=== PATIENT | female | born 1975 | race Hispanic/Latino ===

== ENCOUNTER 2016-10-24 11:59 | Emergency (ER) | payer MEDICARE, MEDICAID ==
[~2016-10-24] VITALS: Ht 167.6 cm; Wt 130.0 kg
[~2016-10-24 11:59] MED LIST: ABILIFY5 MG PO; ACTEMRA80 MG/4 ML IV; ATIVAN; B COMPLE4 PO; CELEXA20 M1 OR; CELEXA20 M1 PO; CETIRIZINE10 MG PO; CHLORPROMAZ50 MG OR; CHLORPROMAZ50 MG PO; CIPRO500 MG OR; CIPROFLOXACN500 MG PO; CITALOPRAM20 MG PO; CLARITIN10 M2 PO; CLONAZEPAM1 MG PO; CYCLOSPORINE25 MG PO; CYMBALTA60 MG PO; DEPO-MEDROL80 MG/ML IM; FOLIC ACID1 MG PO; FOLIC ACID400 MC1 PO; GABAPENTIN300 MG PO; GENGRAF25 MG PO; HUMIR1 SC; HYDROCO/APAP1 T10 PO; HYDROXYCHLOR200 MG PO; LISINOP/HCTZ1 TAB PO; LORTAB 1010 MG PO; LORTAB 7.5 OR; MEDDOSEPAK PO; METRONIDAZOL500 MG PO; NABUMETONE500 MG PO; NAPROSYN500 MG PO; NASONEX50 MCG/AC; NO; NO MEDS; NORCO1 TA1 PO; ONDANSETRON4 MG PO; PRILOSEC20 MG PO; PROAIR HFA IN; PROTONIX40 M2 PO; RASUVO10 MG/0.2; RHEUMATREX2.5 M1 PO; SINGULAIR 10 MG10 MG PO; SOMA350 MG PO; TIZANIDINE HCL4 MG PO; TRAMADOL HCL50 MG PO; TREXALL15 MG PO; TRILEPTAL300 M1 PO; TYLENOL500 MG OR; ULTRAM50 MG PO; VICODIN1 TAB PO; VOSOL2 % OT; WELLBUTRIN; [UNRECOGNIZED DRUG - REMARK]
[2016-10-24] MEDS ORDERED: ZOFRAN ODT4 MG PO (12:57)
[2016-10-24 13:21] VITALS: BP 176/97
== END 2016-10-24 13:27 | disposition home or self-care (01) ==
LOC: ED 11:59
DX: G43.909 Migraine, unspecified, not intractable, without status migrainosus (principal); M43.6 Torticollis; R11.2 Nausea with vomiting, unspecified

== ENCOUNTER 2017-02-06 18:12 | Emergency (ER) | payer MEDICARE, MEDICAID ==
[~2017-02-06] VITALS: Ht 167.6 cm; Wt 90.9 kg
[~2017-02-06 18:12] MED LIST changes: +ZOFRAN ODT4 MG PO
[2017-02-06] MEDS ORDERED: ELAVIL25 M1 PO (18:35)
[2017-02-06] MEDS ORDERED: FOLIC ACID1 MG PO (18:38)
[2017-02-06] MEDS ORDERED: BACLOFEN10 MG PO (18:38)
[2017-02-06] MEDS ORDERED: ATIVAN1 M1 PO (18:40)
[2017-02-06] MEDS ORDERED: RANITIDINE150 M1 PO (18:42)
[2017-02-06] MEDS ORDERED: WELLBUTRIN SR150 MG PO (18:43)
[2017-02-06] MEDS ORDERED: PROAIR HFA IN (18:44)
[2017-02-06] MEDS ORDERED: BREO ELLIPTA 101 INH IN (18:45)
[2017-02-06] MEDS ORDERED: ZOLMITRIPTAN ODT5 MG PO (18:47)
[2017-02-06] MEDS ORDERED: NAPROSYN500 MG PO (19:35)
[2017-02-06 20:00] VITALS: BP 139/88
== END 2017-02-06 20:14 | disposition home or self-care (01) ==
LOC: ED 18:12
DX: S39.012A Strain of muscle, fascia and tendon of lower back, initial encounter (principal); J45.909 Unspecified asthma, uncomplicated; M79.7 Fibromyalgia; F32.9 Major depressive disorder, single episode, unspecified; M06.9 Rheumatoid arthritis, unspecified; K74.60 Unspecified cirrhosis of liver; M54.5 Low back pain; G89.29 Other chronic pain; X58.XXXA Exposure to other specified factors, initial encounter

== ENCOUNTER 2018-03-09 09:33 | Emergency (ER) | payer MEDICARE, MEDICAID ==
[~2018-03-09] VITALS: Ht 167.6 cm; Wt 110.0 kg
[~2018-03-09 09:33] MED LIST changes: +ATIVAN1 M1 PO; +BACLOFEN10 MG PO; +BREO ELLIPTA 101 INH IN; +ELAVIL25 M1 PO; +RANITIDINE150 M1 PO; +WELLBUTRIN SR150 MG PO; +ZOLMITRIPTAN ODT5 MG PO
[2018-03-09] MEDS ORDERED: MOTRIN400 MG PO (10:05)
[2018-03-09 10:22] VITALS: BP 157/78
== END 2018-03-09 10:38 | disposition home or self-care (01) ==
LOC: ED 09:33
DX: G89.18 Other acute postprocedural pain (principal); M79.671 Pain in right foot; Z98.890 Other specified postprocedural states

== ENCOUNTER 2020-11-12 19:13 | Emergency (ER) | payer MEDICARE, MEDICAID ==
[~2020-11-12 19:13] MED LIST changes: +MOTRIN400 MG PO
[2020-11-12 21:17] LABS: HEMATOCRIT 37.6 % (37.0-47.0); HEMOGLOBIN 12.4 g/dl (12.0-16.0); IMMATURE GRANULOCYTES 0.1 % (0.0-5.0); MEAN CELL VOLUME 98.4 fL CALC (80.0-100.0); MEAN CORPUSCULAR HGB 32.5 pG CALC (26.0-32.0); NEUT# 7.72 thou/uL (2.00-7.15); RED BLOOD COUNT 3.82 mill/uL (4.20-5.60); RED CELL DISTRI WIDTH 12.9 % (11.5-15.5)
[2020-11-12 21:35] LABS: ALBUMIN 4.5 g/dL (3.2-5.0); ALKALINE PHOSPHATASE 80 u/l (38-126); AMYLASE 60 u/l (30-110); ANION GAP 17 (6-22 (CALC)); BILIRUBIN, TOTAL 0.4 mg/dL (0.0-1.4); BUN 12 mg/dL (7-17); BUN/CREATININE RATIO 16 (12-20 (CALC)); CARBON DIOXIDE 24 mmol/l (22-30); CHLORIDE 102 mmol/l (95-108); CREATININE 0.7 mg/dL (0.5-1.0); GFR > 60 ML/MIN (>=60 (CALC)); GFR FOR AFR.AMER. > 60 ML/MIN (>=60 (CALC)); LIPASE 51 u/l (23-300); SGOT/AST 31 u/l (14-36); SODIUM 139 mmol/l (137-146); TOTAL PROTEIN 8.3 g/dL (6.3-8.2)
[2020-11-12 21:47] LABS: MYOGLOBIN 26 ng/mL (0 - 62)
[2020-11-12 22:29] LABS: URINE BILIRUBIN - DIPSTICK NEGATIVE (NEGATIVE); URINE BLOOD DIPSTICK LARGE (NEGATIVE); URINE COLOR DK. YELLOW; URINE GLUCOSE - DIPSTICK NEGATIVE (NEGATIVE); URINE KETONE NEGATIVE (NEGATIVE); URINE LEUK ESTERASE NEGATIVE (NEGATIVE); URINE NITRITE - DIPSTICK NEGATIVE (Negative); URINE PH 5.5 (4.5-8.0); URINE PROTEIN - DIPSTICK 30 mg/dL (NEG-TRACE); URINE SPECIFIC GRAVITY >=1.030; URINE UROBILINOGEN - DIPSTICK 0.2 E.U./dL (0.2)
[2020-11-12 22:35] LABS: URINE MUCUS FEW hpf (NONE-FEW); URINE RBC >100 RBC/hpf (0-5); URINE SQUAMOUS EPITHELIAL CELL MODERATE EPI/hpf (0-FEW)
[2020-11-12] MEDS ORDERED: TAMSULOSIN0.4 MG PO (23:46)
[2020-11-13 01:16] VITALS: BP 142/65
[2021-03-20] MEDS ORDERED: FOLIC ACID1 MG PO (09:05)
[2021-03-20] MEDS ORDERED: CYCLOBENZAPRINE10 MG PO (09:05)
[2021-03-20] MEDS ORDERED: RASUVO30 MG/0.6 SC (09:05)
[2021-03-20] MEDS ORDERED: AMITRIPTYLINE H10 MG PO (09:06)
[2021-03-20] MEDS ORDERED: COZAAR25 MG PO (09:06)
[2021-03-20] MEDS ORDERED: ATIVAN0.5 MG PO (09:06)
[2021-03-20] MEDS ORDERED: BUPROPION HCL150 MG PO (09:06)
[2021-03-20] MEDS ORDERED: ONDANSETRON4 MG PO (09:09)
[2021-03-20] MEDS ORDERED: RITUXIMAB (09:09)
[2021-03-20] MEDS ORDERED: ALBUTEROL0.63 MG/3 (09:09)
[2021-03-25] MEDS ORDERED: TIZANIDINE HCL4 M1 PO (11:07)
[2021-03-25] MEDS ORDERED: AMOX/K CLAV875 M1 PO (11:08)
[2021-03-25] MEDS ORDERED: D2000 ULTRA2000 UNIT PO (11:08)
[2021-03-25] MEDS ORDERED: DILAUDID2 MG PO (11:09)
[2021-03-25] MEDS ORDERED: MILLIPRED5 M1 PO (11:09)
[2021-03-25] MEDS ORDERED: VENTOLIN HFA IN (11:10)
[2021-03-25] MEDS ORDERED: MAXALT-MLT10 MG PO (11:10)
[2021-03-25] MEDS ORDERED: BREO ELLIPTA 101 INH IN (11:11)
[2021-03-25] MEDS ORDERED: LYRICA100 MG PO (11:12)
== END 2020-11-13 01:20 | disposition home or self-care (01) ==
LOC: ED 19:13
PROVIDERS: Emergency Medicine
DX: N20.0 Calculus of kidney (principal); M06.9 Rheumatoid arthritis, unspecified; M79.7 Fibromyalgia; F17.200 Nicotine dependence, unspecified, uncomplicated
CPT/HCPCS: Q9967; S0164

== ENCOUNTER 2020-12-16 16:25 | Emergency (ER) | payer MEDICARE, MEDICAID ==
[~2020-12-16] VITALS: Ht 162.6 cm; Wt 85.0 kg
[~2020-12-16 16:25] MED LIST changes: +TAMSULOSIN0.4 MG PO
[2020-12-16 19:10] VITALS: BP 143/82
== END 2020-12-16 19:15 | disposition home or self-care (01) ==
LOC: ED 16:25
DX: M45.6 Ankylosing spondylitis lumbar region (principal); M79.7 Fibromyalgia; M06.9 Rheumatoid arthritis, unspecified

== ENCOUNTER 2021-03-26 09:11 | Day surgery (SDC) | payer MEDICARE, MEDICAID ==
[~2021-03-26 09:11] MED LIST changes: +ALBUTEROL0.63 MG/3; +AMITRIPTYLINE H10 MG PO; +AMOX/K CLAV875 M1 PO; +ATIVAN0.5 MG PO; +BUPROPION HCL150 MG PO; +COZAAR25 MG PO; +CYCLOBENZAPRINE10 MG PO; +D2000 ULTRA2000 UNIT PO; +DILAUDID2 MG PO; +LYRICA100 MG PO; +MAXALT-MLT10 MG PO; +MILLIPRED5 M1 PO; +RASUVO30 MG/0.6 SC; +RITUXIMAB; +TIZANIDINE HCL4 M1 PO; +VENTOLIN HFA IN
[2021-03-26 12:19] VITALS: BP 128/74
[2021-04-07] MEDS ORDERED: SINGULAIR10 MG PO (09:48)
[2021-04-07] MEDS ORDERED: ALLEGRA ALLERGY60 MG PO (09:48)
== END 2021-03-26 12:15 | disposition home or self-care (01) ==
LOC: ORM 09:11
PROVIDERS: ATTEND Surgery
PROC: 0HBU0ZZ Excision of Left Breast, Open Approach (ICD-10-PCS; principal; 2021-03-26)
DX: N62 Hypertrophy of breast (principal); N60.22 Fibroadenosis of left breast; N60.42 Mammary duct ectasia of left breast; N60.12 Diffuse cystic mastopathy of left breast; N60.82 Other benign mammary dysplasias of left breast; I10 Essential (primary) hypertension; E11.9 Type 2 diabetes mellitus without complications; Z80.3 Family history of malignant neoplasm of breast
CPT/HCPCS: J0131

== ENCOUNTER 2021-05-14 11:43 | Emergency (ER) | payer MEDICARE, MEDICAID ==
[~2021-05-14] VITALS: Ht 162.6 cm; Wt 104.3 kg
[~2021-05-14 11:43] MED LIST changes: +ALLEGRA ALLERGY60 MG PO; -AMITRIPTYLINE H10 MG PO; -D2000 ULTRA2000 UNIT PO; +SINGULAIR10 MG PO; +WEEKLY-D1.25 MG PO
[2021-05-14] MEDS ORDERED: CYCLOBENZAPRINE10 MG PO (14:18)
[2021-05-14] MEDS ORDERED: CVS IBUPROFEN200 M1 PO (14:27)
[2021-05-14 15:44] VITALS: BP 123/71
[2021-05-15] MEDS ORDERED: EPIPEN 2-P0.3 MG/0.3 IM (12:32)
[2021-05-15] MEDS ORDERED: PREDNISONE50 MG PO (12:32)
== END 2021-05-14 15:44 | disposition home or self-care (01) ==
LOC: ED 11:43
DX: T78.1XXA Other adverse food reactions, not elsewhere classified, initial encounter (principal); L29.8 Other pruritus; I10 Essential (primary) hypertension; E11.9 Type 2 diabetes mellitus without complications; X58.XXXA Exposure to other specified factors, initial encounter

== ENCOUNTER 2021-08-30 19:41 | Emergency (ER) | payer MEDICARE, MEDICAID ==
[2021-08-30] VITALS (9 sets, daily range): BP systolic 139–181; BP diastolic 92–112
[~2021-08-30] VITALS: Ht 162.6 cm; Wt 100.0 kg
[~2021-08-30 19:41] MED LIST changes: +CVS IBUPROFEN200 M1 PO; +EPIPEN 2-P0.3 MG/0.3 IM; +PREDNISONE50 MG PO
[2021-08-30 20:44] LABS: HEMOGLOBIN 11.7 g/dl (12.0-16.0); IMMATURE GRANULOCYTES 0.1 % (0.0-5.0); MEAN CELL VOLUME 101.7 fL CALC (80.0-100.0); MEAN CORPUSCULAR HGB 33.1 pG CALC (26.0-32.0); MEAN CORPUSCULAR HGB CONC 32.5 g/dL CAL (32.0-36.0); NEUT# 6.62 thou/uL (2.00-7.15); RED BLOOD COUNT 3.54 mill/uL (4.20-5.60); RED CELL DISTRI WIDTH 13.3 % (11.5-15.5)
[2021-08-30 21:22] LABS: ALBUMIN 4.1 g/dL (3.2-5.0); ALKALINE PHOSPHATASE 62 u/l (38-126); AMYLASE 62 u/l (30-110); ANION GAP 13 (6-22 (CALC)); BILIRUBIN, TOTAL 0.3 mg/dL (0.0-1.4); BUN 14 mg/dL (7-17); BUN/CREATININE RATIO 22 (12-20 (CALC)); CARBON DIOXIDE 24 mmol/l (22-30); CHLORIDE 109 mmol/l (95-108); CREATININE 0.6 mg/dL (0.5-1.0); GFR > 60 ML/MIN (>=60 (CALC)); GFR FOR AFR.AMER. > 60 ML/MIN (>=60 (CALC)); LIPASE 46 u/l (23-300); POTASSIUM 3.7 mmol/l (3.5-5.1); SGOT/AST 39 u/l (14-36); SODIUM 142 mmol/l (137-146); TOTAL PROTEIN 7.3 g/dL (6.3-8.2)
[2021-08-30 22:27] LABS: URINE BILIRUBIN - DIPSTICK NEGATIVE (NEGATIVE); URINE BLOOD DIPSTICK MODERATE (NEGATIVE); URINE COLOR YELLOW; URINE GLUCOSE - DIPSTICK NEGATIVE (NEGATIVE); URINE KETONE NEGATIVE (NEGATIVE); URINE LEUK ESTERASE NEGATIVE (NEGATIVE); URINE PROTEIN - DIPSTICK NEGATIVE (NEG-TRACE); URINE UROBILINOGEN - DIPSTICK 0.2 E.U./dL (0.2)
[2021-08-30 22:29] LABS: URINE NITRITE - DIPSTICK NEGATIVE (Negative)
[2021-08-30 22:50] LABS: URINE WBC 0-2 WBC/hpf (0-5)
[2021-08-30 22:51] LABS: URINE MUCUS FEW hpf (NONE-FEW); URINE SQUAMOUS EPITHELIAL CELL FEW EPI/hpf (0-FEW)
== END 2021-08-30 23:35 | disposition home or self-care (01) ==
LOC: ED 19:41
PROVIDERS: Family Medicine
DX: M54.6 Pain in thoracic spine (principal); M79.18 Myalgia, other site; E11.9 Type 2 diabetes mellitus without complications; I10 Essential (primary) hypertension

== ENCOUNTER 2021-12-02 10:10 | Emergency (ER) | payer MEDICARE, MEDICAID ==
[~2021-12-02] VITALS: Ht 162.6 cm; Wt 101.8 kg
[2021-12-02] VITALS (10 sets, daily range): BP systolic 118–174; BP diastolic 73–113
[~2021-12-02 10:10] MED LIST changes: +AMITRIPTYLINE H10 MG PO; -DILAUDID2 MG PO; +DILAUDID4 MG PO
[2021-12-02 10:53] LABS: HEMATOCRIT 35.1 % (37.0-47.0); IMMATURE GRANULOCYTES 0.3 % (0.0-5.0); MEAN CELL VOLUME 95.9 fL CALC (80.0-100.0); MEAN CORPUSCULAR HGB 32.8 pG CALC (26.0-32.0); MEAN CORPUSCULAR HGB CONC 34.2 g/dL CAL (32.0-36.0); NEUT# 10.71 thou/uL (2.00-7.15); RED BLOOD COUNT 3.66 mill/uL (4.20-5.60); RED CELL DISTRI WIDTH 13.2 % (11.5-15.5)
[2021-12-02 11:04] LABS: URINE BILIRUBIN - DIPSTICK NEGATIVE (NEGATIVE); URINE BLOOD DIPSTICK LARGE (NEGATIVE); URINE COLOR YELLOW; URINE GLUCOSE - DIPSTICK NEGATIVE (NEGATIVE); URINE KETONE NEGATIVE (NEGATIVE); URINE LEUK ESTERASE NEGATIVE (NEGATIVE); URINE PROTEIN - DIPSTICK NEGATIVE (NEG-TRACE); URINE UROBILINOGEN - DIPSTICK 0.2 E.U./dL (0.2)
[2021-12-02 11:05] LABS: URINE NITRITE - DIPSTICK NEGATIVE (Negative)
[2021-12-02 11:08] LABS: ALBUMIN 3.9 g/dL (3.2-5.0); ALKALINE PHOSPHATASE 75 u/l (38-126); BILIRUBIN, TOTAL 0.4 mg/dL (0.0-1.4); BUN 15 mg/dL (7-17); BUN/CREATININE RATIO 22 (12-20 (CALC)); CARBON DIOXIDE 24 mmol/l (22-30); CREATININE 0.7 mg/dL (0.5-1.0); GFR FOR AFR.AMER. > 60 ML/MIN (>=60 (CALC)); GFR OTHER RACES > 60 ML/MIN (>=60 (CALC)); LIPASE 358 u/l (23-300); SGOT/AST 17 u/l (14-36); TOTAL PROTEIN 7.4 g/dL (6.3-8.2)
[2021-12-02 11:12] LABS: URINE SQUAMOUS EPITHELIAL CELL FEW EPI/hpf (0-FEW)
[2021-12-02 11:24] LABS: ANION GAP 12 (6-22 (CALC)); CHLORIDE 107 mmol/l (95-108); SODIUM 139 mmol/l (137-146)
[2021-12-02] MEDS ORDERED: OMEPRAZOLE DR40 MG PO (13:11)
[2021-12-03] MEDS ORDERED: TESSALON PERLE100 MG PO (13:45)
== END 2021-12-02 13:46 | disposition home or self-care (01) ==
LOC: ED 10:10
PROVIDERS: Family Medicine
DX: R10.13 Epigastric pain (principal); I10 Essential (primary) hypertension; E78.5 Hyperlipidemia, unspecified; M06.9 Rheumatoid arthritis, unspecified; M45.9 Ankylosing spondylitis of unspecified sites in spine; M79.7 Fibromyalgia; Z90.49 Acquired absence of other specified parts of digestive tract; Z87.11 Personal history of peptic ulcer disease; Z20.822 Contact with and (suspected) exposure to COVID-19
CPT/HCPCS: Q9967; S0164

== ENCOUNTER 2021-12-02 22:04 | Observation (INO) | payer MEDICARE, MEDICAID ==
[~2021-12-02] VITALS: Ht 162.6 cm; Wt 100.0 kg
[~2021-12-02 22:04] MED LIST changes: +OMEPRAZOLE DR40 MG PO
--- NOTE | 2021-12-02 22:18 | NUR ---
AMBULATED WITH SLOW STEADY GAIT TO ROOM 14
[2021-12-02 22:21] VITALS: BP 150/92
[2021-12-02 22:31] VITALS: BP 158/113
[2021-12-02 23:20] LABS: HEMATOCRIT 34.9 % (37.0-47.0); HEMOGLOBIN 11.7 g/dl (12.0-16.0); IMMATURE GRANULOCYTES 0.3 % (0.0-5.0); MEAN CELL VOLUME 98.3 fL CALC (80.0-100.0); MEAN CORPUSCULAR HGB CONC 33.5 g/dL CAL (32.0-36.0); NEUT# 9.55 thou/uL (2.00-7.15); RED BLOOD COUNT 3.55 mill/uL (4.20-5.60); RED CELL DISTRI WIDTH 13.1 % (11.5-15.5)
[2021-12-02 23:21] LABS: URINE BILIRUBIN - DIPSTICK NEGATIVE (NEGATIVE); URINE BLOOD DIPSTICK LARGE (NEGATIVE); URINE COLOR YELLOW; URINE GLUCOSE - DIPSTICK NEGATIVE (NEGATIVE); URINE KETONE NEGATIVE (NEGATIVE); URINE LEUK ESTERASE NEGATIVE (NEGATIVE); URINE NITRITE - DIPSTICK NEGATIVE (Negative); URINE PH 5.5 (4.5-8.0); URINE PROTEIN - DIPSTICK NEGATIVE (NEG-TRACE); URINE SPECIFIC GRAVITY 1.025; URINE UROBILINOGEN - DIPSTICK 0.2 E.U./dL (0.2)
--- NOTE | 2021-12-02 23:25 | NUR ---
PT REPORTS PAIN RELIEF NO NAUSEA OR VOMITING.W/P/D SKIN
[2021-12-02 23:31] VITALS: BP 121/76
[2021-12-02 23:31] LABS: URINE SQUAMOUS EPITHELIAL CELL FEW EPI/hpf (0-FEW)
[2021-12-02 23:33] LABS: ALKALINE PHOSPHATASE 68 u/l (38-126); ANION GAP 13 (6-22 (CALC)); BILIRUBIN, TOTAL 0.3 mg/dL (0.0-1.4); BUN 11 mg/dL (7-17); BUN/CREATININE RATIO 17 (12-20 (CALC)); CARBON DIOXIDE 27 mmol/l (22-30); CHLORIDE 104 mmol/l (95-108); CREATININE 0.7 mg/dL (0.5-1.0); GFR FOR AFR.AMER. > 60 ML/MIN (>=60 (CALC)); GFR OTHER RACES > 60 ML/MIN (>=60 (CALC)); LIPASE 179 u/l (23-300); POTASSIUM 3.8 mmol/l (3.5-5.1); SGOT/AST 16 u/l (14-36); SODIUM 139 mmol/l (137-146); TOTAL PROTEIN 7.3 g/dL (6.3-8.2)
[2021-12-02 23:45] VITALS: BP 118/80
--- NOTE | 2021-12-03 00:10 | NUR ---
REPORT RECEIVED FROM Aaron YANG RN
--- NOTE | 2021-12-03 00:15 | NUR ---
NO N/V PAIN IS 5 ON SCALE AND DROPPING PHONE REPORT TO NURSE MIKIE ON [facility]
--- NOTE | 2021-12-03 00:20 | NUR ---
TRANSPORTED PT TO [facility] RM 279 VIA IN IMPROVED STABLE CONDITION
--- NOTE | 2021-12-03 00:20 | NUR ---
PATIENT ARRIVED ON THE FLOOR VIA WHEELCAHIR CACCOMPANIED BY Aaron YANG RN
[2021-12-03 00:26] VITALS: BP 131/80
[2021-12-03 04:15] VITALS: BP 124/71
--- NOTE | 2021-12-03 04:15 | NUR ---
PATIEN TRESTING COMOFRTABLY, NO CURRENT COMPLAINTS OF PAIN, PATIENT RESPIRATIONS EVEN AND UNLABORED. CALL LIGHT AND BEDSIDE TABLE WITHIN REACH.
[2021-12-03 05:50] LABS: HEMATOCRIT 32.2 % (37.0-47.0); HEMOGLOBIN 10.7 g/dl (12.0-16.0); IMMATURE GRANULOCYTES 0.1 % (0.0-5.0); MEAN CELL VOLUME 99.1 fL CALC (80.0-100.0); MEAN CORPUSCULAR HGB 32.9 pG CALC (26.0-32.0); MEAN CORPUSCULAR HGB CONC 33.2 g/dL CAL (32.0-36.0); NEUT# 7.76 thou/uL (2.00-7.15); RED BLOOD COUNT 3.25 mill/uL (4.20-5.60); RED CELL DISTRI WIDTH 13.1 % (11.5-15.5)
[2021-12-03 06:31] VITALS: BP 113/70
[2021-12-03 07:23] LABS: ANION GAP 10 (6-22 (CALC)); BUN 9 mg/dL (7-17); BUN/CREATININE RATIO 15 (12-20 (CALC)); CARBON DIOXIDE 24 mmol/l (22-30); CHLORIDE 109 mmol/l (95-108); CREATININE 0.6 mg/dL (0.5-1.0); GFR FOR AFR.AMER. > 60 ML/MIN (>=60 (CALC)); GFR OTHER RACES > 60 ML/MIN (>=60 (CALC)); POTASSIUM 3.8 mmol/l (3.5-5.1); SODIUM 139 mmol/l (137-146)
--- NOTE | 2021-12-03 08:08 | NUR ---
RECIEVED REPORT. PT A/OX3 RESTING IN BED. ASSESSMENT COMPLETED. RESPIRATIONS EVEN AND UNLABORED ON ROOM AIR. LUNG SOUNDS CLEAR. HEART RHYTHM NORMAL. BOWEL SOUNDS HYPOACTIVE. PT C/O OF 8/10 UPPER ABD PAIN. PT MEDICATED PER EMAR.ABD SOFT/DISTENDED.SKIN INTACT.NPO STATUS REMAINS. PT DENIES OF ANY ADDITIONAL NEEDS AT THIS TIME. ALL SAFTEY PRECAUTIONS ARE IN PLACE WITH CALL LIGHT IN REACH.
[2021-12-03 10:11] LABS: ALBUMIN 3.4 g/dL (3.2-5.0); ALKALINE PHOSPHATASE 60 u/l (38-126); BILIRUBIN, TOTAL 0.4 mg/dL (0.0-1.4); SGOT/AST 19 u/l (14-36); TOTAL PROTEIN 6.3 g/dL (6.3-8.2)
--- NOTE | 2021-12-03 11:17 | NUR ---
PT RESTING IN SEMI FOWLERS POSITION. RESPIRATIONS EVEN AND UNLBAORD ON ROOM AIR. IVF INFUSING PER ORDER, SITE PATENT. PT DENIES OF ANY NEEDS AT THIS TIME. PT INFORMED OF DR RUEDA CONSULT. VERBLAIZED UNDERSTANDING. ALL SAFTEY PRECAUTIONS ARE IN PLACE WITH CALL LIGHT IN REACH
--- NOTE | 2021-12-03 12:00 | NUR ---
PT RESTING IN SEMI FOWLERS POSITION. RESPIRATIONS EVEN AND UNLBAORED ON ROOM AIR. IV INFUSING WITH IVF PER ORDER. PT STATES MORPHINE HAS HELPED. MRI SCREENING COMPLETED. [employer] INFORMED OF METAL IN RIGHT HIP AND RIGHT FOOT, TO BE INFORMED. PT DENIES OF ANY ADDITIONAL NEEDS. NPO TATUS IN PLACE. ALL SAFTEY PRECAUTIONS ARE IN PLACE WITH CALL LIGHT IN REACH
[2021-12-03] MEDS ORDERED: TESSALON PERLE100 MG PO (13:45)
[2021-12-03 15:04] VITALS: BP 125/77
--- NOTE | 2021-12-03 16:00 | NUR ---
PT IN BED, SEMI FOWLERS POSITION. PT BREATHING IS EVEN AND REMAINS UNLABORED. PT C/O PAIN AT A 8 (1-10 SCALE). PT DENIES ANY OTHER NEEDS AT THIS TIME. WILL RETURN TO MEDICATE FOR PAIN. ALL SAFETY PRECAUTIONS IN PLACE AT THIS TIME.
[2021-12-03 17:01] VITALS: BP 115/69
[2021-12-03 18:56] VITALS: BP 115/72
--- NOTE | 2021-12-03 20:09 | NUR ---
PATIENT RESTING IN BED. NO DISTRESS NOTED. AOX3. NO COMPLAINTS AT THIS TIME. PATIENT DESCRIBES TOLERABLE DISCOMFORT IN ABD RADIATING TO BACK. NO MEDICATION NEEDED. ASSESSMENT COMPLETED. FALL PRECAUTIONS IN PLACE. CALL [place]AYWARD WITHIN REACH.
[2021-12-04] VITALS (12 sets, daily range): BP systolic 114–142; BP diastolic 62–90
--- NOTE | 2021-12-04 04:46 | NUR ---
PATIENT OBSERVED SLEEPING. RESPIRATIONS EVEN AND NONLABORED. FALL PRECAUTIONS IN PLACE. CALL HAYWARD IN REACH.
[2021-12-04 05:53] LABS: BUN 10 mg/dL (7-17); BUN/CREATININE RATIO 16 (12-20 (CALC)); CARBON DIOXIDE 26 mmol/l (22-30); CHLORIDE 107 mmol/l (95-108); CREATININE 0.6 mg/dL (0.5-1.0); GFR FOR AFR.AMER. > 60 ML/MIN (>=60 (CALC)); GFR OTHER RACES > 60 ML/MIN (>=60 (CALC)); MAGNESIUM 2.3 mg/dL (1.6-2.3); SODIUM 139 mmol/l (137-146)
[2021-12-04 05:55] LABS: ANION GAP 10 (6-22 (CALC)); HEMATOCRIT 31.8 % (37.0-47.0); HEMOGLOBIN 10.3 g/dl (12.0-16.0); IMMATURE GRANULOCYTES 0.1 % (0.0-5.0); MEAN CELL VOLUME 100.6 fL CALC (80.0-100.0); MEAN CORPUSCULAR HGB 32.6 pG CALC (26.0-32.0); MEAN CORPUSCULAR HGB CONC 32.4 g/dL CAL (32.0-36.0); NEUT# 6.77 thou/uL (2.00-7.15); RED BLOOD COUNT 3.16 mill/uL (4.20-5.60); RED CELL DISTRI WIDTH 13.4 % (11.5-15.5)
--- NOTE | 2021-12-04 07:15 | NUR ---
PT UP IN ROOM AT SINK BRUSHING TEETH. STEADY ON FEET, AMBULATES WELL. ALERT AND ORIENTATED X4. SPEECH IS CLEAR AND APPROPRIATE TO CONVERSATION. PERRL. BREATHING IS EVEN AND NONLABORED. UPPER EXTREMITIES ARE STRONG, NO DRIFT NOTED. BOWEL SOUNDS HYPOACTIVE. SKIN WARM, DRY AND INTACT. LOWER EXTREMITIES STRONG, NO DRIFT NOTED. STRONG PEDIAL PULSES, BRISK CAP REFIL IN TOES. IV SITE PATENT, NO BURNING OR PAIN REPORTED WHEN BEING FLUSHED. CALL LIGHT WITHIN REACH. ALL SAFETY PRECAUTIONS IN PLACE AT THIS TIME.
--- NOTE | 2021-12-04 12:30 | NUR ---
PT IN BED. C/O STOMACH CRAMPING WHILE EATING LUNCH. ALERT AND ORIENTATED X4. BREATHING IS EVEN AND NON LABORED. IV SITE PATENT. ALL SAFETY PRECAUTIONS IN PLACE AT THIS TIME. CALL LIGHT IN REACH.
--- NOTE | 2021-12-04 14:50 | NUR ---
PT AND DAUGHTER EDUCATED ON DISCHARGE NSTRUCTIONS. PT VERBALIZED UNDERSTANDING. ALL SAFETY PRECAUTIONS IN PLACE AT THIS TIME.
--- NOTE | 2021-12-04 14:58 | NUR ---
Discharge instructions given. Patient verbalizes understanding of same. Discharged in stable condition via Ambulatory to Home with family. All belongings sent with pt.
== END 2021-12-04 15:00 | disposition home or self-care (01) ==
LOC: ED 22:04 → ED-I 23:47 → ED 12-03 00:05 → MS2 12-03 00:06
PROVIDERS: Family Medicine; Nurse Practitioner; ADMIT Internal Medicine; ATTEND Internal Medicine
PROC: 0DB78ZX Excision of Stomach, Pylorus, Via Natural or Artificial Opening Endoscopic, Diagnostic (ICD-10-PCS; principal; 2021-12-04)
DX: K29.70 Gastritis, unspecified, without bleeding (principal); K31.9 Disease of stomach and duodenum, unspecified; I10 Essential (primary) hypertension; E11.9 Type 2 diabetes mellitus without complications; E78.5 Hyperlipidemia, unspecified; F41.9 Anxiety disorder, unspecified; M06.9 Rheumatoid arthritis, unspecified; M79.7 Fibromyalgia; K76.0 Fatty (change of) liver, not elsewhere classified; T47.1X6A Underdosing of other antacids and anti-gastric-secretion drugs, initial encounter; Z91.128 Patient's intentional underdosing of medication regimen for other reason; Z91.11 Patient's noncompliance with dietary regimen; Z86.16 Personal history of COVID-19; Z87.11 Personal history of peptic ulcer disease; Z90.49 Acquired absence of other specified parts of digestive tract; Z20.822 Contact with and (suspected) exposure to COVID-19
CPT/HCPCS: J1650; Q9967; S0164

== ENCOUNTER 2022-03-29 09:51 | Emergency (ER) | payer OTHER, MEDICARE, MEDICAID ==
[2022-03-29] VITALS (8 sets, daily range): BP systolic 135–156; BP diastolic 79–110
[~2022-03-29] VITALS: Ht 162.6 cm; Wt 101.0 kg
[~2022-03-29 09:51] MED LIST changes: +TESSALON PERLE100 MG PO
[2022-03-29 10:48] LABS: URINE BILIRUBIN - DIPSTICK NEGATIVE (NEGATIVE); URINE BLOOD DIPSTICK LARGE (NEGATIVE); URINE COLOR YELLOW; URINE GLUCOSE - DIPSTICK NEGATIVE (NEGATIVE); URINE KETONE NEGATIVE (NEGATIVE); URINE LEUK ESTERASE NEGATIVE (NEGATIVE); URINE PH 5.5 (4.5-8.0); URINE PROTEIN - DIPSTICK NEGATIVE (NEG-TRACE); URINE SPECIFIC GRAVITY >=1.030; URINE UROBILINOGEN - DIPSTICK 0.2 E.U./dL (0.2)
[2022-03-29 10:54] LABS: URINE NITRITE - DIPSTICK NEGATIVE (Negative)
[2022-03-29 10:56] LABS: URINE SQUAMOUS EPITHELIAL CELL MODERATE EPI/hpf (0-FEW)
[2022-03-29] MEDS ORDERED: ULTRAM50 MG PO (12:21)
== END 2022-03-29 12:30 | disposition home or self-care (01) | DRG 914 ==
LOC: ED 09:51
PROVIDERS: Emergency Medicine
DX: T14.8XXA Other injury of unspecified body region, initial encounter (principal); V43.62XA Car passenger injured in collision with other type car in traffic accident, initial encounter; M54.2 Cervicalgia; M79.662 Pain in left lower leg; M79.661 Pain in right lower leg; M54.9 Dorsalgia, unspecified; I10 Essential (primary) hypertension; E78.5 Hyperlipidemia, unspecified

== ENCOUNTER 2022-09-27 14:00 | Emergency (ER) | payer MEDICARE, MEDICAID ==
[~2022-09-27] VITALS: Ht 162.6 cm; Wt 104.5 kg
[2022-09-27] VITALS (15 sets, daily range): BP systolic 122–156; BP diastolic 53–100
[2022-09-27 15:01] LABS: URINE BILIRUBIN - DIPSTICK NEGATIVE (NEGATIVE); URINE BLOOD DIPSTICK LARGE (NEGATIVE); URINE GLUCOSE - DIPSTICK NEGATIVE (NEGATIVE); URINE KETONE TRACE mg/dL (NEGATIVE); URINE LEUK ESTERASE NEGATIVE (NEGATIVE); URINE PH 5.5 (4.5-8.0); URINE PROTEIN - DIPSTICK 30 mg/dL (NEG-TRACE); URINE SPECIFIC GRAVITY 1.025; URINE UROBILINOGEN - DIPSTICK 0.2 E.U./dL (0.2)
[2022-09-27 15:02] LABS: URINE COLOR DK. YELLOW; URINE NITRITE - DIPSTICK NEGATIVE (Negative)
[2022-09-27 15:05] LABS: BASO% 0.4 % (0-3); EOS% 1.7 % (0-8); HEMATOCRIT 41.2 % (37.0-47.0); HEMOGLOBIN 13.2 g/dl (12.0-16.0); IMMATURE GRANULOCYTES 0.1 % (0.0-5.0); LYMPH% 17.7 % (15-41); MEAN CELL VOLUME 96.5 fL CALC (80.0-100.0); MEAN CORPUSCULAR HGB 30.9 pG CALC (26.0-32.0); MONO% 6.6 % (2-13); NEUT# 5.16 thou/uL (2.00-7.15); NEUT% 73.5 % (42-76); RED BLOOD COUNT 4.27 mill/uL (4.20-5.60); RED CELL DISTRI WIDTH 12.2 % (11.5-15.5)
[2022-09-27 15:09] LABS: URINE BACTERIA MODERATE hpf; URINE RBC >100 RBC/hpf (0-5); URINE SQUAMOUS EPITHELIAL CELL FEW EPI/hpf (0-FEW); URINE WBC 0-2 WBC/hpf (0-5)
[2022-09-27 15:15] LABS: ALKALINE PHOSPHATASE 65 u/l (38-126); ANION GAP 15 (6-22 (CALC)); BILIRUBIN, TOTAL 0.5 mg/dL (0.02-1.3); BUN 15 mg/dL (7-17); BUN/CREATININE RATIO 18 (12-20 (CALC)); CARBON DIOXIDE 22 mmol/l (22-30); CHLORIDE 108 mmol/l (95-108); CREATININE 0.8 mg/dL (0.5-1.0); GFR FOR AFR.AMER. > 60 ML/MIN (>=60 (CALC)); GFR OTHER RACES > 60 ML/MIN (>=60 (CALC)); POTASSIUM 4.2 mmol/l (3.5-5.1); SGOT/AST 28 u/l (14-36); SODIUM 141 mmol/l (137-146)
[2022-09-27 15:18] LABS: ALBUMIN 4.6 g/dL (3.2-5.0); TOTAL PROTEIN 8.3 g/dL (6.3-8.2)
[2022-09-27] MEDS ORDERED: IBUPROFEN PO (19:49)
[2022-09-27] MEDS ORDERED: TAMSULOSIN0.4 MG PO (19:49)
== END 2022-09-27 20:28 | disposition home or self-care (01) ==
LOC: ED 14:00
PROVIDERS: Family Medicine
DX: N13.2 Hydronephrosis with renal and ureteral calculous obstruction (principal); I10 Essential (primary) hypertension; E78.5 Hyperlipidemia, unspecified; M06.9 Rheumatoid arthritis, unspecified; Z87.11 Personal history of peptic ulcer disease; Z87.442 Personal history of urinary calculi
CPT/HCPCS: Q9967

== ENCOUNTER 2024-03-19 21:15 | Emergency (ER) | payer MEDICARE, MEDICAID ==
[~2024-03-19] VITALS: Ht 162.6 cm; Wt 96.6 kg
[~2024-03-19 21:15] MED LIST changes: +IBUPROFEN PO; +MORPHINE SUL30 M3 PO; +VALIUM2 MG PO
[2024-03-19] MEDS ORDERED: HYDROmorphone HCL 2 MG/AMP IV STA (21:54)
[2024-03-19] MEDS ORDERED: SODIUM CHLORIDE 0.9% 1,000 ML IV STA (21:54)
[2024-03-19] MEDS ORDERED: PROMETHAZINE HCL 25 MG/ML AMP IV ONE (21:55)
[2024-03-19 22:16] LABS: BASO% 0.3 % (0-3); EOS% 2.8 % (0-8); LYMPH% 20.2 % (15-41); MEAN CELL VOLUME 98.9 fL CALC (80.0-100.0); MEAN CORPUSCULAR HGB 32.1 pG CALC (26.0-32.0); MEAN CORPUSCULAR HGB CONC 32.4 g/dL CAL (32.0-36.0); MONO% 7.2 % (2-13); NEUT# 5.41 thou/uL (2.00-7.15); NEUT% 69.5 % (42-76); RED BLOOD COUNT 3.74 mill/uL (4.20-5.60); RED CELL DISTRI WIDTH 13.9 % (11.5-15.5)
[2024-03-19 22:28] LABS: ALBUMIN 4.3 g/dL (3.2-5.0); BILIRUBIN, TOTAL 0.4 mg/dL (0.02-1.3); CREATININE 0.6 mg/dL (0.5-1.0); POTASSIUM 3.6 mmol/l (3.5-5.1); TOTAL PROTEIN 7.3 g/dL (6.3-8.2)
[2024-03-19] MEDS ORDERED: ISOVUE-300 (Iopamidol) 100 ML SDV IV ONE (22:50)
[2024-03-19 23:00] VITALS: BP 129/80
[2024-03-19 23:15] VITALS: BP 121/78
[2024-03-19 23:30] VITALS: BP 134/91
[2024-03-19] MEDS ORDERED: LACTATED RINGER'S 1,000 ML IV ONE (23:40)
[2024-03-20] VITALS: BP 132/72
[2024-03-20 00:15] VITALS: BP 122/73
[2024-03-20 00:36] LABS: URINE BILIRUBIN - DIPSTICK Negative (NEGATIVE); URINE BLOOD DIPSTICK Small (NEGATIVE); URINE GLUCOSE - DIPSTICK Negative (NEGATIVE); URINE KETONE Negative (NEGATIVE); URINE NITRITE - DIPSTICK Negative (Negative); URINE PROTEIN - DIPSTICK Negative (NEG-TRACE); URINE SPECIFIC GRAVITY <=1.005; URINE UROBILINOGEN - DIPSTICK 0.2 E.U./dL (0.2)
[2024-03-20 00:38] LABS: URINE COLOR Yellow; URINE LEUK ESTERASE Negative (NEGATIVE)
[2024-03-20 00:43] LABS: URINE BACTERIA FEW hpf; URINE EPITHELIAL CELLS FEW EPI/hpf (0-FEW); URINE WBC 0-2 WBC/hpf (0-5)
[2024-03-20 01:12] VITALS: BP 122/73
== END 2024-03-20 01:12 | disposition home or self-care (01) ==
LOC: ED 21:15
PROVIDERS: Family Medicine
DX: R10.12 Left upper quadrant pain (principal); I10 Essential (primary) hypertension; E78.5 Hyperlipidemia, unspecified; M06.9 Rheumatoid arthritis, unspecified; Z87.11 Personal history of peptic ulcer disease; M79.7 Fibromyalgia
CPT/HCPCS: J1171; Q9967